=== PATIENT | female | born 1945 | race Caucasian/White ===

== ENCOUNTER 2018-01-17 09:32 | Day surgery (SDC) | payer OTHER ==
--- NOTE | 2018-01-10 09:47 | HP ---
DATE OF ADMISSION: 01/17/2018 DATE OF SURGERY: 01/17/2018 BRIEF HISTORY: This is a 72-year-old female who is known to have a left inguinal hernia. She has had a bulge in the left groin for many, many years. Over this time course, the bulge has gotten significantly larger, and now she has more symptoms from this. Her symptoms are pain in the area. The pain is bearable. She denies sharp pain, nausea, or vomiting. PAST MEDICAL HISTORY: Significant for hypertension. She denies any other medical conditions. PAST SURGICAL HISTORY: She has had a section with her last child from umbilicus to pubis in the midline. ALLERGIES: None. MEDICATIONS: Lansoprazole, atorvastatin. PHYSICAL EXAMINATION: The abdomen is soft, nontender, nondistended. She has a well-healed scar from umbilicus to pubis. No obvious hernia defects within the scar. She has a large mass in the left groin. The mass is larger than a golf ball but smaller than a baseball. The mass is partially reducible in the supine position. The mass is nontender. No overlying skin changes. No contralateral finding. IMPRESSION AND PLAN: Suspect chronically incarcerated left inguinal hernia, however, an incisional hernia cannot be entirely ruled out. I would recommend an open repair of this. If she truly has an inguinal hernia, this can be repaired hopefully primarily. If at the time of surgery the tissue is too frayed, the patient will have mesh placed. If the tissue can be repaired primarily, it will be done so. If this turns out to be an incisional hernia, the patient will require a mesh repair. The indications, alternatives, and complications of the procedure are discussed, questions answered. We will plan to obtain written consent the day of surgery. ADELE HUSTON M.D. [id number] cc: Dr. Chin [address] [place] [address]
[2018-01-16 14:44] VITALS: BMI 23.8
[2018-01-17] MEDS ORDERED: ceFAZolin SODIUM 1 GM VIAL ONE (10:16)
[2018-01-17] MEDS ORDERED: ROCURONIUM BROMIDE 50 MG/5 ML VIAL ONE ×2 (11:28→15:52)
[2018-01-17] MEDS ORDERED: PROPOFOL 20 ML ONE (11:28)
[2018-01-17] MEDS ORDERED: fentaNYL CITRATE 250 MCG/5 ML VIAL ONE (11:28)
[2018-01-17] MEDS ORDERED: ROPIVACAINE HCL 0.5% 30ML VIAL ONE (12:13)
[2018-01-17] MEDS ORDERED: MIDAZOLAM HCL 2 MG/2 ML SINGLE DOSE VIAL ONE ×3 (12:13→14:36)
[2018-01-17] MEDS ORDERED: DEXAMETHASONE SOD PHOSPHATE/PF 10 MG/ML SDV ONE (12:13)
[2018-01-17] MEDS ORDERED: ceFAZolin SODIUM 1 GM VIAL IVPB ONE (12:37)
[2018-01-17] MEDS ORDERED: GLYCOPYRROLATE 0.2 MG/1 ML VIAL ONE ×3 (13:48→16:13)
[2018-01-17] MEDS ORDERED: NEOSTIGMINE METHYLSULFATE 0.5 MG/ML - 10 ML MDV ONE ×2 (13:48→16:13)
[2018-01-17] MEDS ORDERED: ONDANSETRON 4 MG/2 ML VIAL ONE (14:11)
[2018-01-17] MEDS ORDERED: oxyCODONE HCL 5 MG TABLET PO PRN ×2 (14:31)
[2018-01-17] MEDS ORDERED: ONDANSETRON 4 MG/2 ML VIAL IVPUSH PRN (14:31)
[2018-01-17] MEDS ORDERED: LACTATED RINGERS SOLUTION 1,000 ML IV SCH (14:45)
--- NOTE | 2018-01-17 14:46 | OP ---
DATE OF OPERATION: 01/17/2018 PREOPERATIVE DIAGNOSIS: Chronically incarcerated left inguinal hernia. POSTOPERATIVE DIAGNOSIS: Chronically incarcerated left inguinal hernia. PROCEDURE PERFORMED: Open repair of chronically incarcerated left inguinal hernia with mesh, 8 cm intermediate wound closure. SURGEON: Fausto Yu M.D. RELAY DISPATCHER: Anmol Cortes M.D. ANESTHESIOLOGIST: Brendan Harley M.D. ANESTHESIA: General. ESTIMATED BLOOD LOSS: Minimal. SPECIMEN: Portion of hernia sack. INDICATIONS FOR PROCEDURE: This is a 72-year-old female who presented to the office with long-standing chronically incarcerated left inguinal hernia. She is having more difficulty with the hernia and wishes to have this repaired. DESCRIPTION OF PROCEDURE: The patient was identified and appropriately positioned on the operating room table. After the placement of general anesthesia, the abdomen was prepped and draped in the usual sterile fashion with ChloraPrep. An 8-cm left inguinal incision was made and deepened through the subcutaneous tissue. Mo 's was divided sharply. The fascia of the external oblique was opened in the direction of its fibers through the external ring. The ilioinguinal nerve was identified and retracted more medially. There was also a nerve coming through the internal ring, and this nerve was sharply divided (the nerve was divided to allow closure of the internal ring). The round ligament and hernia sac were isolated at the level of the pubic tubercle. The round ligament was serially clamped, divided and tied with 3-0 Vicryl suture. The hernia sac was taken back to the level of the internal ring, subsequently twisted and suture ligated with 3-0 Prolene suture. This sac was reduced back into the preperitoneal space. This patient's inguinal floor is markedly attenuated due to chronicity and size of this hernia. Therefore, a mesh repair was performed. The inguinal floor was opened slightly. The preperitoneal space was subsequently developed, and the mesh placed into the preperitoneal space with blunt dissection and fanned out medially. Laterally it was placed against the inferior edge of the inguinal ligament. The mesh plug itself was anchored with interrupted inverted 3-0 Prolene sutures. The inguinal floor was reconstructed in 2 layers with a running 2-0 Prolene suture. Due to the poor floor integrity, a ProGrip was used on top as additional reinforcement. The ProGrip was cut to the appropriate size and placed underneath the oblique fascia. The nerve returned to its anatomic position that was noted more medially and off the inguinal floor. The fascia of the external oblique was reapproximated with a running 3-0 Vicryl suture. Mo's was reapproximated with interrupted inverted 3-0 chromic sutures and the skin closed with 4-0 subcuticular Biosyn. The length of the incision was 8 cm. At the conclusion of this case, the patient tolerated the procedure well. Jose CRENSHAW [id number] cc: DR. ANNE, [facility] MTDD
[2018-01-17] MEDS ORDERED: oxyCODONE HCL 5 MG TABLET ONE (16:49)
[2018-01-17 18:44] VITALS: BP 136/98; PULSE 81; TEMP 98.2
--- NOTE | 2018-01-19 18:47 | PATH ---
Surgical Pathology Report Patient Name: NATACHA BYERS [facility]. Rec. #: [id number] /Age/Gender: 1945 (Age: 72) / F Account: [id number] Location: [facility] SURGICAL Taken: 01/17/2018 Received: 01/18/2018 Reported: 01/19/2018 Physicians: Fausto Yu Specimen(s) Received HERNIA SAC Clinical History Left inguinal hernia Final Diagnosis HERNIA SAC, EXCISION: CONSISTENT WITH HERNIA SAC. Electronically Signed Saundra Cleary M.D. Gross Description Received in formalin, labeled "hernia sac" are 2 olmedo, irregular portions of membranous and adipose tissue measuring 3 x 3 x 1cm. The specimen is sectioned and small business representative sections are submitted in one cassette. __ FRAN/01/18/2018 carmenza/01/18/2018
== END 2018-01-17 18:40 | disposition home or self-care (01) ==
LOC: JASU-SURG 09:32
PROVIDERS: ATTEND Surgery
PROC: 0YU60JZ Supplement Left Inguinal Region with Synthetic Substitute, Open Approach (ICD-10-PCS; principal; 2018-01-17 12:45)
DX: K40.30 Unilateral inguinal hernia, with obstruction, without gangrene, not specified as recurrent (principal)
CPT/HCPCS: 88302-TC; 94760

== ENCOUNTER 2022-03-12 11:42 | Emergency (ER) | payer OTHER ==
[2022-03-12 11:50] VITALS: BP 152/86; PULSE 53; RESP 18; TEMP 98.3; BMI 23.8
[2022-03-12 12:57] LABS: PH,URINE 7.5 (5.0-8.0); URINE APPEARANCE CLEAR; URINE BILIRUBIN NEGATIVE (NEGATIVE); URINE COLOR YELLOW; URINE GLUCOSE (UA) NEGATIVE (NEGATIVE); URINE KETONE NEGATIVE (NEGATIVE); URINE LEUK ESTERASE NEGATIVE (NEGATIVE); URINE NITRITE NEGATIVE (NEGATIVE); URINE PROTEIN NEGATIVE (NEGATIVE); URINE UROBILINOGEN 0.2 mg/dL (0.2-1.0)
[2022-03-12 14:54] LABS: BASO % 1.3 % (0-2.0); EOS % 0.3 % (0-4.5); HEMATOCRIT 43.3 % (32.4-45.2); HEMOGLOBIN 14.4 GM/dL (10.7-15.3); LYMPH % 13.2 % (8-40); MCH 32.9 pg (25.7-33.7); MCHC 33.2 g/dl (32.0-36.0); MONO % 8.4 % (3.8-10.2); NEUT % 76.8 % (42.8-82.8); PLATELET COUNT 231 10^3/uL (134-434); RBC 4.37 M/mm3 (3.60-5.2); RDW 14.4 % (11.6-15.6); WHITE BLOOD COUNT 7.3 K/mm3 (4.0-10.0)
[2022-03-12 15:13] LABS: BLOOD UREA NITROGEN 16.1 mg/dL (7-18); CALCIUM 9.1 mg/dL (8.5-10.1)
[2022-03-12 15:16] LABS: CREATININE 1.3 mg/dL (0.55-1.3)
[2022-03-12 15:19] LABS: BILIRUBIN,TOTAL 1.1 mg/dL (0.2-1); TOT PROT 7.2 g/dl (6.4-8.2)
== END 2022-03-12 16:00 | disposition home or self-care (01) ==
LOC: JER 11:42
DX: S00.83XA Contusion of other part of head, initial encounter (principal); R00.1 Bradycardia, unspecified; Z79.01 Long term (current) use of anticoagulants; W01.0XXA Fall on same level from slipping, tripping and stumbling without subsequent striking against object, initial encounter
CPT/HCPCS: 36415; 70450-TC; 70486-TC; 72125-TC; 80053; 81003; 85025; 87086; 93005; 93010; 99285-25

== ENCOUNTER 2022-03-23 12:09 | Emergency (ER) | payer OTHER ==
[2022-03-23 13:16] VITALS: BP 131/79; PULSE 52; RESP 18; TEMP 98.2; BMI 23.8
== END 2022-03-23 14:06 | disposition home or self-care (01) ==
LOC: JER 12:09 → JERFT 12:09
DX: S60.212A Contusion of left wrist, initial encounter (principal); S80.02XA Contusion of left knee, initial encounter; W01.0XXA Fall on same level from slipping, tripping and stumbling without subsequent striking against object, initial encounter
CPT/HCPCS: 73110-TC-LT-FY; 73130-TC-LT-FY; 73562-TC-LT-FY; 99284-25

== ENCOUNTER 2022-10-10 09:53 | Emergency (ER) | payer OTHER ==
[2022-10-10 09:58] VITALS: BP 127/77; PULSE 59; RESP 18; TEMP 98.2; BMI 23.8
[2022-10-10 11:24] LABS: BASO % 0.5 % (0-2.0); HEMATOCRIT 42.1 % (32.4-45.2); HEMOGLOBIN 13.8 GM/dL (10.7-15.3); LYMPH % 9.9 % (8-40); MCH 32.1 pg (25.7-33.7); MCHC 32.6 g/dl (32.0-36.0); MEAN CELL VOLUME 98.3 fl (80-96); NEUT % 79.6 % (42.8-82.8); PLATELET COUNT 232 10^3/uL (134-434); RBC 4.29 M/mm3 (3.60-5.2); RDW 14.4 % (11.6-15.6); WHITE BLOOD COUNT 6.7 K/mm3 (4.0-10.0)
[2022-10-10 11:25] LABS: INR 1.22 (0.83-1.09); PROTHROMBIN TIME (PATIENT) 14.1 SEC (9.7-13.0)
[2022-10-10 11:29] LABS: ACTIVATED PTT 34.4 SECONDS (25.2-36.5)
== END 2022-10-10 12:44 | disposition home or self-care (01) ==
LOC: JER 09:53
DX: R04.0 Epistaxis (principal); R11.0 Nausea
CPT/HCPCS: 36415; 85025; 85610; 85730; 99283-25